=== PATIENT | female | born 1955 | race Caucasian/White ===

== ENCOUNTER 2020-02-07 06:02 | Day surgery (SDC) | payer OTHER ==
[~2020-02-07] VITALS: Ht 157.5 cm; Wt 54.1 kg
[~2020-02-07 06:02] MED LIST: CHOL200035 PO; CYAN500T18 PO; DULO20CA30 PO; PANT-31 PO; QUET200T PO; RAMI5CAP67 PO; SODIUM CHLORIDE 0.9% 1,000 ML IV ONE; SODIUM CHLORIDE 0.9% 1,000 ML ONE; THERAGRAN M1 TA1 PO
[2020-02-07] MEDS ORDERED: LIDOCAINE/PF 2% 5 ML SYRINGE IVP ONE (06:03)
[2020-02-07] MEDS ORDERED: PROPOFOL 1% 20 ML VIAL IVP ONE (06:03)
[2020-02-07] MEDS ORDERED: TRAZ-252 PO (06:28)
[2020-02-07] MEDS ORDERED: OMEP20 PO (06:28)
[2020-02-07] MEDS ORDERED: NAPR-1025 PO (06:28)
[2020-02-07] MEDS ORDERED: GABA-1216 PO (06:28)
[2020-02-07] MEDS ORDERED: CYCL10 PO (06:28)
== END 2020-02-07 10:10 | disposition home or self-care (01) ==
LOC: SURGERY 06:02
PROVIDERS: ATTEND Internal Medicine Gastroenterology
DX: K22.2 Esophageal obstruction (principal); K22.10 Ulcer of esophagus without bleeding; J44.9 Chronic obstructive pulmonary disease, unspecified; B19.20 Unspecified viral hepatitis C without hepatic coma
CPT/HCPCS: 43239; 43249; 88305; 88312; 88313; C1769; J2704; J3490; J7030